=== PATIENT | male | born 1995 | race Caucasian/White ===

== ENCOUNTER 2023-01-16 14:31 | Emergency (ER) | payer BC | END 2023-01-16 19:15 | disposition home or self-care (01) | LOC: JD.ED 14:31 | DX: S32.82XA Multiple fractures of pelvis without disruption of pelvic ring, initial encounter for closed fracture (principal); W17.89XA Other fall from one level to another, initial encounter; Y92.89 Other specified places as the place of occurrence of the external cause; Y99.0 Civilian activity done for income or pay | CPT/HCPCS: 72192; 72192-26; 73502-26-LT; 73502-LT; 99283; 99284 ==